=== PATIENT | female | born 1950 | race Caucasian/White ===

== ENCOUNTER 2017-07-06 09:18 | Observation (INO) | payer MEDICARE, OTHER ==
[~2017-07-06 09:18] MED LIST: Gentamicin 40 MG/ML 2 ML Vial ONE; Povidone-Iodine 10% Soln 118.25 ML Bottle ONE
[2017-07-06] MEDS ORDERED: Gabapentin 300 MG Cap PO ONE (09:45)
[2017-07-06] MEDS ORDERED: Acetaminophen 500 MG Tab PO ONE (09:45)
[2017-07-06] MEDS ORDERED: Scopolamine 1.5 MG Transdermal Patch TOP SCH (09:45)
[2017-07-06] MEDS ORDERED: Lactated Ringers 1,000 ML IV SCH ×2 (10:00→15:00)
[2017-07-06] MEDS ORDERED: Clindamycin Phosphate 900 MG in Sodium Chloride 0.9% 100 ML IV ONE (11:00)
[2017-07-06] MEDS: Tranexamic Acid 800 MG in Sodium Chloride 0.9% 50 ML IV SCH ×2 (11:15→16:36)
[2017-07-06] MEDS ORDERED: Ketamine 500 MG/5 ML MDV IV SCH (11:15)
[2017-07-06] MEDS ORDERED: Ropivacaine 49.25 ML, Ketorolac 30 MG, EPINEPHrine 0.5 MG, cloNIDine 80 MCG, Sodium Chl... INJECT ONE ×5 (11:15)
[2017-07-06] MEDS ORDERED: Midazolam 1 MG/ML 2 ML SDV ONE (12:24)
[2017-07-06] MEDS ORDERED: fentaNYL 100 MCG/2 ML SDV ONE (12:24)
[2017-07-06] MEDS ORDERED: Propofol 200 MG/20 ML SDV ONE ×2 (12:25→14:12)
[2017-07-06] MEDS ORDERED: Lactated Ringers 1,000 ML ONE (13:49)
[2017-07-06] MEDS ORDERED: diphenhydrAMINE 50 MG/ML SDV IVPUSH PRN (14:52)
[2017-07-06] MEDS ORDERED: Ondansetron 4 MG/2 ML SDV IVPUSH PRN (14:52)
[2017-07-06] MEDS ORDERED: Naloxone 0.4 MG/ML SDV IVPUSH PRN (14:52)
[2017-07-06] MEDS ORDERED: Magnesium Hydroxide 400 MG/5 ML Susp 30 ML Cup PO PRN (14:52)
[2017-07-06] MEDS ORDERED: Aluminum Hydroxide/Magnesium Hydroxide/Simethicone Susp 30 ML Cup PO PRN (14:52)
[2017-07-06] MEDS ORDERED: Sennosides 8.6 MG Tab PO PRN (14:52)
[2017-07-06] MEDS ORDERED: Bisacodyl 5 MG Tab PO PRN (14:52)
[2017-07-06] MEDS ORDERED: Albuterol 0.083% 2.5 MG/3 ML Neb Soln INH PRN (14:57)
[2017-07-06] MEDS ORDERED: Levalbuterol Tartrate HFA 15 GM Inhaler INH PRN (14:57)
[2017-07-06] MEDS: SCOPOLAMINE PATCH CHECK TOP SCH (16:31)
[2017-07-06] MEDS: Ketorolac 30 MG/ML SDV IVPUSH PRN (16:32)
[2017-07-06] MEDS: Acetaminophen/oxyCODONE 325-5 MG Tab PO PRN (18:12)
[2017-07-06] MEDS: Gabapentin 300 MG Cap PO SCH (18:23)
[2017-07-06] MEDS: traMADol 50 MG Tab PO PRN (20:29)
[2017-07-06] MEDS: rOPINIRole 0.5 MG Tab PO SCH (22:04)
[2017-07-06] MEDS: Amitriptyline 10 MG Tab PO SCH (22:04)
[2017-07-06] MEDS: Zolpidem 5 MG Tab PO PRN (22:04)
[2017-07-06] MEDS: Gabapentin 400 MG Cap PO SCH (22:04)
--- NOTE | 2017-07-06 23:09 | OR ---
DATE OF PROCEDURE: 07/06/2017 PREOPERATIVE DIAGNOSIS: Right knee primary osteoarthritis. POSTOPERATIVE DIAGNOSIS: Right knee primary osteoarthritis. PROCEDURE: Right total knee arthroplasty. ANESTHESIA: Spinal plus conscious sedation. FLUID: Lactated Ringer solution. ESTIMATED BLOOD LOSS: 50 mL. COMPLICATIONS: None. SPECIMEN: None. DISCHARGE DISPOSITION: Stable to PACU. INSTRUMENTATION: DePuy Attune knee, size 6 femur, size 6 tibia, size 6, 5 mm polyethylene and a 38 mm patella. INDICATIONS FOR THE PROCEDURE: The patient was seen preoperatively in the clinic. She failed nonoperative treatment. Preoperative imaging confirmed the above-mentioned diagnosis. Risks and benefits of the procedure were explained to the patient and informed consent was obtained. DESCRIPTION OF THE PROCEDURE: The patient was seen preoperatively by myself and the anesthesia staff in the preop holding area where the operative site was marked. She was brought to the operative suite by anesthesia staff where spinal sedation plus conscious sedation was administered. All extremities found to be well padded. A well-padded tourniquet was placed on the right lower extremity. Sterile Hobson catheter was inserted. The right lower extremity was prepped and draped in sterile manner. Time-out was called identifying the correct patient, correct procedure, the correct site, and antibiotics had begun within appropriate period of time. The right lower extremity was exsanguinated. Tourniquet was raised to 300 mmHg for 37 minutes and let down during cementing. A midline incision was made from the tibial tubercle to fit 3 fingerbreadths proximal to the proximal pole of the patella. A medial parapatellar arthrotomy was then made. The medial tibia was then exposed with Bovie electrocautery. The infrapatellar fat pad was then removed and a full synovectomy was performed using Bovie electrocautery. The patella was then everted and held with a tower clip. The knee was flexed. A saw cut was made freehand on the patella. The knee was then extended, this measured 38. I then drilled 3 holes for the trial and then placed the trial patella. I then flexed the knee again and reamed the distal femur and then put in an intramedullary guide at 9 mm distal cut, 5 degree valgus, pinned this in place, then made my distal femoral cut. I then removed the guide. I then used my posterior condylar guide which measured a 6 then placed the [address]. I then removed the guide and then placed the chamfer block and then cut the anterior-posterior chamfer cuts. I then removed the chamfer guide. I then concentrated on tibial preparation. We used an extramedullary tibial guide along the tibial tubercle down to the second metatarsal with a 3 mm distal resection. I did make 2 cuts and after removing the proximal tibial bone, I then used a laminar at home independent call center agent medially and laterally and then removed the remainder of the posterior menisci and then any posterior osteophytes with a curved osteotome. I then anteriorized the tibia again with a blunt Hohmann and then placed a 6 base plate,tamped it in place, then used my tower for reaming and then tamping, pulled it in place. We then inserted the femur and then drilled the lugs for the femur. I then inserted my 6, 5 mm polyethylene trial, this provided good stability, we then removed all of our components. We then copiously irrigated with saline and dried the bone and then cemented all of our components in place, held in extension with size 6, 5 mm polyethylene trial. I waited until the cement dried. We did control some bleeding with Bovie electrocautery. I then removed any extra cement, copiously irrigated with saline and then inserted my final size 6, 5 mm polyethylene tibial insert. This provided excellent stability throughout range of motion. I then closed my parapatellar arthrotomy with two #5 Ethibond sutures, and #1 running STRATAFIX and then irrigated again and then closed subcutaneous layer with #2 STRATAFIX, followed by skin martell, followed by Betadine-soaked Adaptic, followed by sterile dressing. The patient was then transferred to her hospital bed and taken to the PACU in stable condition. Baldo Harper DO /[id number]
[2017-07-07] MEDS: Ketorolac 30 MG/ML SDV IVPUSH PRN (02:23)
[2017-07-07] MEDS: traMADol 50 MG Tab PO PRN ×4 (02:24→23:25)
[2017-07-07] MEDS: Docusate Sodium 100 MG Cap PO PRN ×2 (02:24→21:39)
[2017-07-07] MEDS: Acetaminophen/oxyCODONE 325-5 MG Tab PO PRN ×5 (03:25→21:38)
[2017-07-07] MEDS: Morphine 2 MG/ML Syringe IVPUSH PRN ×2 (04:04→18:24)
[2017-07-07] MEDS: DULoxetine 30 MG Cap PO SCH (08:26)
[2017-07-07] MEDS: Hydrochlorothiazide/Triamterene 25-37.5 Tab PO SCH ×2 (08:27→09:44)
[2017-07-07] MEDS: Aspirin 325 MG Tab.EC PO SCH (08:27)
[2017-07-07] MEDS: Clopidogrel 75 MG Tab PO SCH (08:28)
[2017-07-07] MEDS: Gabapentin 300 MG Cap PO SCH ×2 (08:28→15:46)
[2017-07-07] MEDS: SCOPOLAMINE PATCH CHECK TOP SCH (08:28)
[2017-07-07] MEDS: Sodium Chloride 0.9% 10 ML Syringe FLUSH SCH (08:28)
[2017-07-07] MEDS: Allopurinol 300 MG Tab PO SCH (08:29)
[2017-07-07] MEDS: buPROPion 150 MG Tab.ER PO SCH (08:29)
[2017-07-07] MEDS: atorvaSTATin 10 MG Tab PO SCH (08:31)
--- NOTE | 2017-07-07 08:50 | CR ---
Knee 1V or 2V Rt HISTORY: POST RIGHT KNEE REPLACEMENT FINDINGS: Postoperative position and alignment left total knee arthroplasty with patella resurfacing appear sat isfactory. No complication can be seen. Anterior skin martell are noted. Air in the joint is consiste nt with the postoperative state. IMPRESSION: Satisfactory postoperative position and alignment left total knee arthroplasty with patella resurfaci ng. No complication identified.
[2017-07-07] MEDS ORDERED: Verapamil 120 MG Tab.ER PO SCH (09:00)
[2017-07-07] MEDS ORDERED: Verapamil 240 MG Tab.ER PO SCH (09:00)
[2017-07-07] MEDS ORDERED: Isosorbide Dinitrate 10 MG Tab PO SCH (09:00)
[2017-07-07] MEDS: Metoprolol Succinate 25 MG Tab.ER PO SCH (09:46)
--- NOTE | 2017-07-07 10:20 | PCM.PN ---
- General Info Date of Service: 07/07/17 Functional Status: Reports: Pain Controlled, Tolerating Diet - Review of Systems General: Denies: Fever Pulmonary: Denies: Shortness of Breath Neurological: Reports: Dizziness Systems Review Comment:: there were no acute events overnight. Patient was noted to have low blood pressure this morning with systolic pressures in the 90-100 range. She has mild lightheadedness but has been up and moving around and working with physical therapy. She does not complain of shortness of breath. Knee pain is rated as 4 out of 10. - Patient Data Vitals - Most Recent: Last Vital Signs Temp 35.5 C 07/07/17 07:24 Pulse 58 L 07/07/17 09:46 Resp 16 07/07/17 07:24 BP 92/56 L 07/07/17 09:46 Pulse Ox 94 L 07/07/17 07:24 Weight - Most Recent: 78.97 kg I&O - Last 24 Hours: Intake & Output 07/06/17 07/07/17 07/07/17 22:59 06:59 14:59 Intake Total 1777 1400 Output Total 430 400 Balance 1347 1000 Lab Results Last 24 Hours: Laboratory Results - last 24 hr 07/06/17 07/07/17 07/07/17 Range/Units 09:40 04:28 04:28 WBC 10.7 (4.5-11.0) K/uL RBC 2.94 L (3.30-5.50) M/uL Hgb 9.9 L D (12.0-15.0) g/dL Hct 31.1 L (36.0-48.0) % MCV 106 H (80-98) fL MCH 34 H (27-31) pg MCHC 32 (32-36) % Plt Count 332 (150-400) K/uL Neut % (Auto) 66 (36-66) % Lymph % (Auto) 20 L (24-44) % [place] % (Auto) 10 H (2-6) % Eos % (Auto) 4 (2-4) % Baso % (Auto) 0 (0-1) % Sodium 138 L (140-148) mmol/L Potassium 4.0 (3.6-5.2) mmol/L Chloride 102 (100-108) mmol/L Carbon Dioxide 30 (21-32) mmol/L Anion Gap 10.0 (5.0-14.0) mmol/L BUN 22 H (7-18) mg/dL Creatinine 1.2 H (0.6-1.0) mg/dL Est Cr Clr Drug Dosing 38.75 mL/min Estimated GFR (MDRD) 45 L (>60) Glucose 98 (74-106) mg/dL Calcium 8.1 L (8.5-10.1) mg/dL Total Bilirubin 0.5 D (0.2-1.0) mg/dL AST 20 (15-37) U/L ALT 26 (12-78) U/L Alkaline Phosphatase 64 (46-116) U/L Total Protein 5.7 L (6.4-8.2) g/dL Albumin 3.1 L (3.4-5.0) g/dL Globulin 2.6 (2.3-3.5) g/dL Albumin/Globulin Ratio 1.2 (1.2-2.2) Blood Type A POSITIVE Gel Antibody Screen Negative Med Orders - Current: Current Medications Al Hydroxide/Mg Hydroxide (Mag-Al Plus) 30 ml PO Q4H PRN PRN Reason: Constipation Albuterol (Proventil Neb Soln) 2.5 mg INH DAILY PRN PRN Reason: Wheezing Allopurinol (Zyloprim) 300 mg PO DAILY [facility] Last Admin: 07/07/17 08:29 Dose: 300 mg Amitriptyline HCl (Elavil) 20 mg PO BEDTIME [facility] Last Admin: 07/06/17 22:04 Dose: 20 mg Aspirin (Ecotrin) 325 mg PO DAILY [facility] Last Admin: 07/07/17 08:27 Dose: 325 mg Atorvastatin Calcium (Lipitor) 10 mg PO DAILY [facility] Last Admin: 07/07/17 08:31 Dose: 10 mg Bisacodyl (Dulcolax) 10 mg PO DAILY PRN PRN Reason: Constipation Bupropion HCl (Wellbutrin Xl) 150 mg PO DAILY [facility] Last Admin: 07/07/17 08:29 Dose: 150 mg Clopidogrel Bisulfate (Plavix) 75 mg PO DAILY [facility] Last Admin: 07/07/17 08:28 Dose: 75 mg Diphenhydramine HCl (Benadryl) 25 mg IVPUSH Q4H PRN PRN Reason: Itching Docusate Sodium (Colace) 100 mg PO BID PRN PRN Reason: Constipation Last Admin: 07/07/17 02:24 Dose: 100 mg Duloxetine HCl (Cymbalta) 60 mg PO DAILY [facility] Last Admin: 07/07/17 08:26 Dose: 60 mg Gabapentin (Neurontin) 600 mg PO BID@0900,1600 [facility] Last Admin: 07/07/17 08:28 Dose: 600 mg Gabapentin (Neurontin) 1,200 mg PO BEDTIME [facility] Last Admin: 07/06/17 22:04 Dose: 1,200 mg Isosorbide Dinitrate (Isordil) 10 mg PO DAILY [facility] Last Admin: 07/07/17 09:45 Dose: Not Given Levalbuterol HCl (Xopenex Hfa) 0 gm INH DAILY PRN PRN Reason: Wheezing Magnesium Hydroxide (Milk Of Magnesia) 30 ml PO BID PRN PRN Reason: Constipation Metoprolol Succinate (Toprol Xl) 25 mg PO DAILY [facility] Last Admin: 07/07/17 09:46 Dose: 25 mg Morphine Sulfate (Morphine) 2 mg IVPUSH Q2H PRN PRN Reason: Pain Last Admin: 07/07/17 04:04 Dose: 2 mg Naloxone HCl (Narcan) 0.1 mg IVPUSH ONETIME PRN PRN Reason: Oversedation Scopolamine Patch (Check) 1 each TOP DAILY [facility] Last Admin: 07/07/17 08:28 Dose: Not Given Ondansetron HCl (Zofran) 8 mg IVPUSH Q4H PRN PRN Reason: Nausea/Vomiting Oxycodone/Acetaminophen (Percocet 325-5 Mg) 2 tab PO Q4H PRN PRN Reason: Pain Last Admin: 07/07/17 07:31 Dose: 2 tab Ropinirole HCl (Requip) 0.5 mg PO BEDTIME [facility] Last Admin: 07/06/17 22:04 Dose: Not Given Scopolamine (Transderm-Scop) 1.5 mg TOP Q72H [facility] Stop: 07/09/17 05:45 Last Admin: 07/06/17 10:10 Dose: 1.5 mg Senna (Senna) 8.6 mg PO BID PRN PRN Reason: Constipation Sodium Chloride (Saline Flush) 10 ml FLUSH DAILY [facility] Last Admin: 07/07/17 08:28 Dose: 10 ml Tramadol HCl (Ultram) 100 mg PO Q6H PRN PRN Reason: Pain Last Admin: 07/07/17 09:37 Dose: 100 mg Triamterene/HCTZ (Maxzide 25-37.5 Mg) 1 each PO DAILY [facility] Last Admin: 07/07/17 09:44 Dose: Not Given Verapamil HCl (Calan Sr) 240 mg PO DAILY [facility] Last Admin: 07/07/17 09:45 Dose: Not Given Zolpidem Tartrate (Ambien) 5 mg PO BEDTIME PRN PRN Reason: Sleep Last Admin: 07/06/17 22:04 Dose: 5 mg Discontinued Medications Acetaminophen (Tylenol Extra Strength) 1,000 mg PO ONETIME ONE Stop: 07/06/17 09:46 Last Admin: 07/06/17 10:09 Dose: 1,000 mg Ropivacaine 49.25 ml/Ketorolac Tromethamine 30 mg/Epinephrine HCl 0.5 mg/ Clonidine HCl 80 mcg/ Sodium Chloride 48.45 ml 0 ml INJECT ONETIME ONE Stop: 07/06/17 11:16 Last Admin: 07/06/17 14:28 Dose: 80 ml Fentanyl (Sublimaze) Confirm Administered Dose 100 mcg .ROUTE .STK-MED ONE Stop: 07/06/17 12:25 Gabapentin (Neurontin) 300 mg PO ONETIME ONE Stop: 07/06/17 09:46 Last Admin: 07/06/17 10:09 Dose: 300 mg Gentamicin Sulfate (Gentamicin) Confirm Administered Dose 240 mg .ROUTE .STK- MED ONE Stop: 07/06/17 07:16 Last Admin: 07/06/17 13:55 Dose: 240 mg Clindamycin Phosphate 900 mg/ (Sodium Chloride) 106 mls @ 200 mls/hr IV ONETIME ONE Stop: 07/06/17 11:31 Last Admin: 07/06/17 11:00 Dose: 200 mls/hr Lactated Ringer's (Ringers, Lactated) 1,000 mls @ 100 mls/hr IV ASDIRECTED [facility] Last Admin: 07/06/17 10:48 Dose: 100 mls/hr Tranexamic Acid 800 mg/ Sodium (Chloride) 58 mls @ 232 mls/hr IV Q3H [facility] Stop: 07/06/17 14:29 Last Admin: 07/06/17 16:36 Dose: Not Given Lactated Ringer's (Ringers, Lactated) Confirm Administered Dose 1,000 mls @ as directed .ROUTE .STK-MED ONE Stop: 07/06/17 13:50 Lactated Ringer's (Ringers, Lactated) 1,000 mls @ 100 mls/hr IV ASDIRECTED [facility] Ketamine HCl (Ketalar) 27 mg IV ASDIRECTED [facility] Ketorolac Tromethamine (Toradol) 30 mg IVPUSH Q8H PRN PRN Reason: Pain Last Admin: 07/07/17 02:23 Dose: 30 mg Midazolam HCl (Versed 1 Mg/Ml) Confirm Administered Dose 2 mg .ROUTE .STK-MED ONE Stop: 07/06/17 12:25 Povidone Iodine (Betadine 10% Soln) Confirm Administered Dose 1 ml .ROUTE .STK- MED ONE Stop: 07/06/17 07:16 Last Admin: 07/06/17 13:55 Dose: 1 ml Propofol (Diprivan 20 Ml) Confirm Administered Dose 200 mg .ROUTE .STK-MED ONE Stop: 07/06/17 12:26 Propofol (Diprivan 20 Ml) Confirm Administered Dose 200 mg .ROUTE .STK-MED ONE Stop: 07/06/17 14:13 Verapamil HCl (Calan Sr) 240 mg PO DAILY [facility] - Exam Quality Assessment: No: Supplemental Oxygen General: Alert, Oriented, Cooperative, No Acute Distress Neck: Supple Lungs: Clear to Auscultation, Normal Respiratory Effort Cardiovascular: Regular Rate, Regular Rhythm GI/Abdominal Exam: No Distention Extremities: No Pedal Edema Skin: Warm, Dry Psy/Mental Status: Alert, Normal Affect - Problem List Review Problem List Initiated/Reviewed/Updated: Yes - Plan Plan:: ASSESSMENT AND PLAN - Status post right TKA - doing quite well postoperatively. Pain well-controlled. -Postoperative cares per orthopedic team Coronary artery disease - patient had 3 percutaneous stents placed approximately one year ago and has been on therapy with clopidogrel since that time. -Continue clopidogrel and metoprolol -Hold isosorbide as below Essential hypertension - blood pressure on the low side, mildly symptomatic. -Hold verapamil, isosorbide and tram train/hydrochlorothiazide Disposition - anticipate discharge to home tomorrow Prasanna Crevantes M.D.
[2017-07-07] MEDS: Amitriptyline 10 MG Tab PO SCH (21:39)
[2017-07-07] MEDS: Zolpidem 5 MG Tab PO PRN (21:39)
[2017-07-07] MEDS: Gabapentin 400 MG Cap PO SCH (21:40)
[2017-07-07] MEDS: rOPINIRole 0.5 MG Tab PO SCH (21:44)
[2017-07-08] MEDS: Acetaminophen/oxyCODONE 325-5 MG Tab PO PRN ×3 (02:32→11:25)
[2017-07-08] MEDS: traMADol 50 MG Tab PO PRN ×2 (05:44→13:00)
[2017-07-08] MEDS ORDERED: Sodium Chloride 0.9% 500 ML IV ONE (08:45)
--- NOTE | 2017-07-08 09:03 | PCM.DCSUM1 ---
Discharge Summary - Discharge Data Discharge Date: 07/08/17 Discharge Disposition: Home, Self-Care 01 Condition: Good - Discharge Diagnosis/Problem(s) (1) Primary osteoarthritis of right knee SNOMED Code(s): 754095069735741, [id number] ICD Code: M17.11 - UNILATERAL PRIMARY OSTEOARTHRITIS, RIGHT KNEE Status: Chronic Current Visit: No - Patient Summary/Data Operative Procedure(s) Performed: right tka Consults: Consultations 07/06/17 14:52 OT Evaluation and Treatment [CONS] Routine Please Evaluate and Treat. OT Reason for Consult: Strengthening This query below is only for informational purposes and is not editable. PT Evaluation and Treatment [CONS] Routine Please Evaluate and Treat. PT Reason for Consult: Strengthening This query below is only for informational purposes and is not editable. Respiratory Care Assess and Treatment [CONS] Routine Comment: Physician Instructions: Post-op Pneumonia Prevention - Patient Instructions Diet: Usual Diet as Tolerated Activity: As Tolerated, Full Weight Bearing, No Strenuous Activities Driving: Do Not Drive Showering/Bathing: May Shower Wound/Incision Care: Keep Operative Site/Wound Site Clean and Dry, Change Dressing Daily Notify Provider of: Fever, Increased Pain, Swelling and Redness, Drainage, Nausea and/or Vomiting - Discharge Plan Prescriptions/Med Rec: Acetaminophen/oxyCODONE [Percocet 325-5 MG] 1 tab PO Q6HR #90 tablet Home Medications: Home Meds Acetaminophen with Codeine [Acetaminophen-Cod #3] 1 tab PO Q4H PRN 06/15/17 [ History] Alendronate Sodium [Alendronate] 70 mg PO WEEKLY 06/15/17 [History] Allopurinol [Zyloprim] 300 mg PO DAILY 06/15/17 [History] Amitriptyline [Elavil] 20 mg PO BEDTIME 06/15/17 [History] Clopidogrel Bisulfate [Clopidogrel] 75 mg PO DAILY 06/15/17 [History] DULoxetine HCl [Duloxetine HCl] 60 mg PO DAILY 06/15/17 [History] Isosorbide Dinitrate 10 mg PO DAILY 06/15/17 [History] Metoprolol Succinate [Toprol XL] 25 mg PO DAILY 06/15/17 [History] Triamterene/Hydrochlorothiazid [Triamterene-HCTZ 37.5-25 MG] 25 - 37.5 mg PO DAILY 06/15/17 [History] Verapamil [Calan SR] 240 mg PO DAILY 06/15/17 [History] Zolpidem Tartrate 10 mg PO DAILY 06/15/17 [History] atorvaSTATin [Lipitor] 10 mg PO DAILY 06/15/17 [History] buPROPion [buPROPion XL] 150 mg PO DAILY 06/15/17 [History] rOPINIRole [Requip] 0.5 mg PO DAILY 06/15/17 [History] Gabapentin [Neurontin] 1,200 mg PO BEDTIME 06/16/17 [History] Gabapentin [Neurontin] 600 mg PO BID 06/16/17 [History] Acetaminophen/oxyCODONE [Percocet 325-5 MG] 1 tab PO Q6HR #90 tablet 07/06/17 [ Rx] Albuterol [Proventil] 1 ampule INH DAILY PRN 07/06/17 [History] Cholecalciferol (Vitamin D3) [Vitamin D] 5,000 unit PO DAILY 07/06/17 [History] Levalbuterol Tartrate [Xopenex HFA] 1 puff INH DAILY PRN 07/06/17 [History] Magnesium Oxide 400 mg PO DAILY 07/06/17 [History] Referrals: Dasha Jimenez PT [Physical Therapist] - 07/12/17 9:00 am Baldo Harper DO [Physician] - 07/29/17 10:15 am - General Info Functional Status: Reports: Pain Controlled - Review of Systems General: Reports: No Symptoms HEENT: Reports: No Symptoms Pulmonary: Reports: No Symptoms Cardiovascular: Reports: No Symptoms Gastrointestinal: Reports: No Symptoms Genitourinary: Reports: No Symptoms Musculoskeletal: Reports: Joint Pain Skin: Reports: No Symptoms Neurological: Reports: No Symptoms Psychiatric: Reports: No Symptoms - Patient Data Vitals - Most Recent: Last Vital Signs Temp 99.2 F 07/08/17 07:35 Pulse 75 07/08/17 07:35 Resp 18 07/08/17 07:35 BP 117/31 L 07/08/17 07:35 Pulse Ox 97 07/08/17 07:35 Weight - Most Recent: 174 lb 1.585 oz I&O - Last 24 hours: Intake & Output 07/07/17 07/08/17 07/08/17 22:59 06:59 14:59 Intake Total 2019 700 Output Total 450 900 Balance 1570 -200 Lab Results - Last 24 hrs: Laboratory Results - last 24 hr 07/08/17 07/08/17 Range/Units 05:07 05:07 WBC 9.0 (4.5-11.0) K/uL RBC 2.73 L (3.30-5.50) M/uL Hgb 9.2 L (12.0-15.0) g/dL Hct 28.6 L (36.0-48.0) % MCV 105 H (80-98) fL MCH 34 H (27-31) pg MCHC 32 (32-36) % Plt Count 282 (150-400) K/uL Neut % (Auto) 70 H (36-66) % Lymph % (Auto) 10 L (24-44) % [place] % (Auto) 14 H (2-6) % Eos % (Auto) 6 H (2-4) % Baso % (Auto) 0 (0-1) % Sodium 139 L (140-148) mmol/L Potassium 4.8 (3.6-5.2) mmol/L Chloride 104 (100-108) mmol/L Carbon Dioxide 29 (21-32) mmol/L Anion Gap 10.8 (5.0-14.0) mmol/L BUN 24 H (7-18) mg/dL Creatinine 1.3 H (0.6-1.0) mg/dL Est Cr Clr Drug Dosing 36.03 mL/min Estimated GFR (MDRD) 41 L (>60) Glucose 108 H (74-106) mg/dL Calcium 8.1 L (8.5-10.1) mg/dL Total Bilirubin 0.4 (0.2-1.0) mg/dL AST 17 (15-37) U/L ALT 21 (12-78) U/L Alkaline Phosphatase 60 (46-116) U/L Total Protein 5.7 L (6.4-8.2) g/dL Albumin 2.7 L (3.4-5.0) g/dL Globulin 3.0 (2.3-3.5) g/dL Albumin/Globulin Ratio 0.9 L (1.2-2.2) Med Orders - Current: Current Medications Al Hydroxide/Mg Hydroxide (Mag-Al Plus) 30 ml PO Q4H PRN PRN Reason: Constipation Albuterol (Proventil Neb Soln) 2.5 mg INH DAILY PRN PRN Reason: Wheezing Allopurinol (Zyloprim) 300 mg PO DAILY [facility] Last Admin: 07/07/17 08:29 Dose: 300 mg Amitriptyline HCl (Elavil) 20 mg PO BEDTIME [facility] Last Admin: 07/07/17 21:39 Dose: 20 mg Aspirin (Ecotrin) 325 mg PO DAILY [facility] Last Admin: 07/07/17 08:27 Dose: 325 mg Atorvastatin Calcium (Lipitor) 10 mg PO DAILY [facility] Last Admin: 07/07/17 08:31 Dose: 10 mg Bisacodyl (Dulcolax) 10 mg PO DAILY PRN PRN Reason: Constipation Bupropion HCl (Wellbutrin Xl) 150 mg PO DAILY [facility] Last Admin: 07/07/17 08:29 Dose: 150 mg Clopidogrel Bisulfate (Plavix) 75 mg PO DAILY [facility] Last Admin: 07/07/17 08:28 Dose: 75 mg Diphenhydramine HCl (Benadryl) 25 mg IVPUSH Q4H PRN PRN Reason: Itching Docusate Sodium (Colace) 100 mg PO BID PRN PRN Reason: Constipation Last Admin: 07/07/17 21:39 Dose: 100 mg Duloxetine HCl (Cymbalta) 60 mg PO DAILY [facility] Last Admin: 07/07/17 08:26 Dose: 60 mg Gabapentin (Neurontin) 600 mg PO BID@0900,1600 [facility] Last Admin: 07/07/17 15:46 Dose: 600 mg Gabapentin (Neurontin) 1,200 mg PO BEDTIME [facility] Last Admin: 07/07/17 21:40 Dose: 1,200 mg Sodium Chloride (Normal Saline) 500 mls @ 500 mls/hr IV ASDIRECTED ONE Stop: 07/08/17 09:44 Isosorbide Dinitrate (Isordil) 10 mg PO DAILY [facility] Last Admin: 07/07/17 09:45 Dose: Not Given Levalbuterol HCl (Xopenex Hfa) 0 gm INH DAILY PRN PRN Reason: Wheezing Magnesium Hydroxide (Milk Of Magnesia) 30 ml PO BID PRN PRN Reason: Constipation Metoprolol Succinate (Toprol Xl) 25 mg PO DAILY [facility] Last Admin: 07/07/17 09:46 Dose: 25 mg Morphine Sulfate (Morphine) 2 mg IVPUSH Q2H PRN PRN Reason: Pain Last Admin: 07/07/17 18:24 Dose: 2 mg Naloxone HCl (Narcan) 0.1 mg IVPUSH ONETIME PRN PRN Reason: Oversedation Scopolamine Patch (Check) 1 each TOP DAILY [facility] Last Admin: 07/07/17 08:28 Dose: Not Given Ondansetron HCl (Zofran) 8 mg IVPUSH Q4H PRN PRN Reason: Nausea/Vomiting Oxycodone/Acetaminophen (Percocet 325-5 Mg) 2 tab PO Q4H PRN PRN Reason: Pain Last Admin: 07/08/17 07:22 Dose: 2 tab Ropinirole HCl (Requip) 0.5 mg PO BEDTIME [facility] Last Admin: 07/07/17 21:44 Dose: 0.25 mg Scopolamine (Transderm-Scop) 1.5 mg TOP Q72H [facility] Stop: 07/09/17 05:45 Last Admin: 07/06/17 10:10 Dose: 1.5 mg Senna (Senna) 8.6 mg PO BID PRN PRN Reason: Constipation Sodium Chloride (Saline Flush) 10 ml FLUSH DAILY [facility] Last Admin: 07/07/17 08:28 Dose: 10 ml Tramadol HCl (Ultram) 100 mg PO Q6H PRN PRN Reason: Pain Last Admin: 07/08/17 05:44 Dose: 100 mg Triamterene/HCTZ (Maxzide 25-37.5 Mg) 1 each PO DAILY [facility] Last Admin: 07/07/17 09:44 Dose: Not Given Verapamil HCl (Calan Sr) 240 mg PO DAILY [facility] Last Admin: 07/07/17 09:45 Dose: Not Given Zolpidem Tartrate (Ambien) 5 mg PO BEDTIME PRN PRN Reason: Sleep Last Admin: 07/07/17 21:39 Dose: 5 mg Discontinued Medications Acetaminophen (Tylenol Extra Strength) 1,000 mg PO ONETIME ONE Stop: 07/06/17 09:46 Last Admin: 07/06/17 10:09 Dose: 1,000 mg Ropivacaine 49.25 ml/Ketorolac Tromethamine 30 mg/Epinephrine HCl 0.5 mg/ Clonidine HCl 80 mcg/ Sodium Chloride 48.45 ml 0 ml INJECT ONETIME ONE Stop: 07/06/17 11:16 Last Admin: 07/06/17 14:28 Dose: 80 ml Fentanyl (Sublimaze) Confirm Administered Dose 100 mcg .ROUTE .STK-MED ONE Stop: 07/06/17 12:25 Gabapentin (Neurontin) 300 mg PO ONETIME ONE Stop: 07/06/17 09:46 Last Admin: 07/06/17 10:09 Dose: 300 mg Gentamicin Sulfate (Gentamicin) Confirm Administered Dose 240 mg .ROUTE .STK- MED ONE Stop: 07/06/17 07:16 Last Admin: 07/06/17 13:55 Dose: 240 mg Clindamycin Phosphate 900 mg/ (Sodium Chloride) 106 mls @ 200 mls/hr IV ONETIME ONE Stop: 07/06/17 11:31 Last Admin: 07/06/17 11:00 Dose: 200 mls/hr Lactated Ringer's (Ringers, Lactated) 1,000 mls @ 100 mls/hr IV ASDIRECTED [facility] Last Admin: 07/06/17 10:48 Dose: 100 mls/hr Tranexamic Acid 800 mg/ Sodium (Chloride) 58 mls @ 232 mls/hr IV Q3H [facility] Stop: 07/06/17 14:29 Last Admin: 07/06/17 16:36 Dose: Not Given Lactated Ringer's (Ringers, Lactated) Confirm Administered Dose 1,000 mls @ as directed .ROUTE .STK-MED ONE Stop: 07/06/17 13:50 Lactated Ringer's (Ringers, Lactated) 1,000 mls @ 100 mls/hr IV ASDIRECTED [facility] Ketamine HCl (Ketalar) 27 mg IV ASDIRECTED [facility] Ketorolac Tromethamine (Toradol) 30 mg IVPUSH Q8H PRN PRN Reason: Pain Last Admin: 07/07/17 02:23 Dose: 30 mg Midazolam HCl (Versed 1 Mg/Ml) Confirm Administered Dose 2 mg .ROUTE .STK-MED ONE Stop: 07/06/17 12:25 Povidone Iodine (Betadine 10% Soln) Confirm Administered Dose 1 ml .ROUTE .STK- MED ONE Stop: 07/06/17 07:16 Last Admin: 07/06/17 13:55 Dose: 1 ml Propofol (Diprivan 20 Ml) Confirm Administered Dose 200 mg .ROUTE .STK-MED ONE Stop: 07/06/17 12:26 Propofol (Diprivan 20 Ml) Confirm Administered Dose 200 mg .ROUTE .STK-MED ONE Stop: 07/06/17 14:13 Verapamil HCl (Calan Sr) 240 mg PO DAILY [facility] - Exam General: Reports: Alert, Oriented HEENT: Reports: Pupils Equal, Pupils Reactive, EOMI, Mucous Membr. Moist/[place] Neck: Reports: Supple, Trachea Midline Lungs: Reports: Normal Respiratory Effort Extremities: Limited Range of Motion, Increased Warmth Skin: Reports: Warm, Dry Wound/Incisions: Reports: Healing Well, Dressing Dry and Intact, No Drainage Neurological: Reports: No New Focal Deficit Psy/Mental Status: Reports: Alert, Normal Affect, Normal Mood (walking well) Discharge Operative/Procedures - Procedures Performed Operations: right tka
[2017-07-08] MEDS: Aspirin 325 MG Tab.EC PO SCH (09:09)
[2017-07-08] MEDS: DULoxetine 30 MG Cap PO SCH (09:09)
[2017-07-08] MEDS: Gabapentin 300 MG Cap PO SCH (09:10)
[2017-07-08] MEDS: SCOPOLAMINE PATCH CHECK TOP SCH (09:11)
[2017-07-08] MEDS: Clopidogrel 75 MG Tab PO SCH (09:12)
[2017-07-08] MEDS: buPROPion 150 MG Tab.ER PO SCH (09:13)
[2017-07-08] MEDS: Sodium Chloride 0.9% 10 ML Syringe FLUSH SCH (09:13)
[2017-07-08] MEDS: Allopurinol 300 MG Tab PO SCH (09:13)
[2017-07-08] MEDS: Metoprolol Succinate 25 MG Tab.ER PO SCH (09:14)
[2017-07-08] MEDS: atorvaSTATin 10 MG Tab PO SCH (09:14)
--- NOTE | 2017-07-08 14:32 | PCM.PN ---
- General Info Date of Service: 07/08/17 Functional Status: Reports: Pain Controlled, Tolerating Diet, Ambulating - Review of Systems Systems Review Comment:: No acute events overnight. Blood pressures remained on the low side but are trending up. She did receive a fluid bolus this morning. - Patient Data Vitals - Most Recent: Last Vital Signs Temp 36.8 C 07/08/17 11:22 Pulse 66 07/08/17 11:22 Resp 16 07/08/17 11:22 BP 140/55 L 07/08/17 11:22 Pulse Ox 95 07/08/17 11:22 Weight - Most Recent: 78.97 kg I&O - Last 24 Hours: Intake & Output 07/07/17 07/08/17 07/08/17 22:59 06:59 14:59 Intake Total 2020 700 450 Output Total 450 900 Balance 1570 -200 450 Lab Results Last 24 Hours: Laboratory Results - last 24 hr 07/08/17 07/08/17 Range/Units 05:07 05:07 WBC 9.0 (4.5-11.0) K/uL RBC 2.73 L (3.30-5.50) M/uL Hgb 9.2 L (12.0-15.0) g/dL Hct 28.6 L (36.0-48.0) % MCV 105 H (80-98) fL MCH 34 H (27-31) pg MCHC 32 (32-36) % Plt Count 282 (150-400) K/uL Neut % (Auto) 70 H (36-66) % Lymph % (Auto) 10 L (24-44) % Carroll % (Auto) 14 H (2-6) % Eos % (Auto) 6 H (2-4) % Baso % (Auto) 0 (0-1) % Sodium 139 L (140-148) mmol/L Potassium 4.8 (3.6-5.2) mmol/L Chloride 104 (100-108) mmol/L Carbon Dioxide 29 (21-32) mmol/L Anion Gap 10.8 (5.0-14.0) mmol/L BUN 24 H (7-18) mg/dL Creatinine 1.3 H (0.6-1.0) mg/dL Est Cr Clr Drug Dosing 36.03 mL/min Estimated GFR (MDRD) 41 L (>60) Glucose 108 H (74-106) mg/dL Calcium 8.1 L (8.5-10.1) mg/dL Total Bilirubin 0.4 (0.2-1.0) mg/dL AST 17 (15-37) U/L ALT 21 (12-78) U/L Alkaline Phosphatase 60 (46-116) U/L Total Protein 5.7 L (6.4-8.2) g/dL Albumin 2.7 L (3.4-5.0) g/dL Globulin 3.0 (2.3-3.5) g/dL Albumin/Globulin Ratio 0.9 L (1.2-2.2) Med Orders - Current: Current Medications Discontinued Medications Acetaminophen (Tylenol Extra Strength) 1,000 mg PO ONETIME ONE Stop: 07/06/17 09:46 Last Admin: 07/06/17 10:09 Dose: 1,000 mg Al Hydroxide/Mg Hydroxide (Mag-Al Plus) 30 ml PO Q4H PRN PRN Reason: Constipation Albuterol (Proventil Neb Soln) 2.5 mg INH DAILY PRN PRN Reason: Wheezing Allopurinol (Zyloprim) 300 mg PO DAILY [facility] Last Admin: 07/08/17 09:13 Dose: 300 mg Amitriptyline HCl (Elavil) 20 mg PO BEDTIME [facility] Last Admin: 07/07/17 21:39 Dose: 20 mg Aspirin (Ecotrin) 325 mg PO DAILY [facility] Last Admin: 07/08/17 09:09 Dose: 325 mg Atorvastatin Calcium (Lipitor) 10 mg PO DAILY [facility] Last Admin: 07/08/17 09:14 Dose: 10 mg Bisacodyl (Dulcolax) 10 mg PO DAILY PRN PRN Reason: Constipation Bupropion HCl (Wellbutrin Xl) 150 mg PO DAILY [facility] Last Admin: 07/08/17 09:13 Dose: 150 mg Clopidogrel Bisulfate (Plavix) 75 mg PO DAILY [facility] Last Admin: 07/08/17 09:12 Dose: 75 mg Ropivacaine 49.25 ml/Ketorolac Tromethamine 30 mg/Epinephrine HCl 0.5 mg/ Clonidine HCl 80 mcg/ Sodium Chloride 48.45 ml 0 ml INJECT ONETIME ONE Stop: 07/06/17 11:16 Last Admin: 07/06/17 14:28 Dose: 80 ml Diphenhydramine HCl (Benadryl) 25 mg IVPUSH Q4H PRN PRN Reason: Itching Docusate Sodium (Colace) 100 mg PO BID PRN PRN Reason: Constipation Last Admin: 07/07/17 21:39 Dose: 100 mg Duloxetine HCl (Cymbalta) 60 mg PO DAILY [facility] Last Admin: 07/08/17 09:09 Dose: 60 mg Fentanyl (Sublimaze) Confirm Administered Dose 100 mcg .ROUTE .STK-MED ONE Stop: 07/06/17 12:25 Gabapentin (Neurontin) 300 mg PO ONETIME ONE Stop: 07/06/17 09:46 Last Admin: 07/06/17 10:09 Dose: 300 mg Gabapentin (Neurontin) 600 mg PO BID@0900,1600 [facility] Last Admin: 07/08/17 09:10 Dose: 600 mg Gabapentin (Neurontin) 1,200 mg PO BEDTIME [facility] Last Admin: 07/07/17 21:40 Dose: 1,200 mg Gentamicin Sulfate (Gentamicin) Confirm Administered Dose 240 mg .ROUTE .STK- MED ONE Stop: 07/06/17 07:16 Last Admin: 07/06/17 13:55 Dose: 240 mg Clindamycin Phosphate 900 mg/ (Sodium Chloride) 106 mls @ 200 mls/hr IV ONETIME ONE Stop: 07/06/17 11:31 Last Admin: 07/06/17 11:00 Dose: 200 mls/hr Lactated Ringer's (Ringers, Lactated) 1,000 mls @ 100 mls/hr IV ASDIRECTED [facility] Last Admin: 07/06/17 10:48 Dose: 100 mls/hr Tranexamic Acid 800 mg/ Sodium (Chloride) 58 mls @ 232 mls/hr IV Q3H [facility] Stop: 07/06/17 14:29 Last Admin: 07/06/17 16:36 Dose: Not Given Lactated Ringer's (Ringers, Lactated) Confirm Administered Dose 1,000 mls @ as directed .ROUTE .STK-MED ONE Stop: 07/06/17 13:50 Lactated Ringer's (Ringers, Lactated) 1,000 mls @ 100 mls/hr IV ASDIRECTED [facility] Sodium Chloride (Normal Saline) 500 mls @ 500 mls/hr IV ASDIRECTED ONE Stop: 07/08/17 09:44 Last Admin: 07/08/17 09:08 Dose: 500 mls/hr Isosorbide Dinitrate (Isordil) 10 mg PO DAILY [facility] Last Admin: 07/07/17 09:45 Dose: Not Given Ketamine HCl (Ketalar) 27 mg IV ASDIRECTED [facility] Ketorolac Tromethamine (Toradol) 30 mg IVPUSH Q8H PRN PRN Reason: Pain Last Admin: 07/07/17 02:23 Dose: 30 mg Levalbuterol HCl (Xopenex Hfa) 0 gm INH DAILY PRN PRN Reason: Wheezing Magnesium Hydroxide (Milk Of Magnesia) 30 ml PO BID PRN PRN Reason: Constipation Metoprolol Succinate (Toprol Xl) 25 mg PO DAILY [facility] Last Admin: 07/08/17 09:14 Dose: 25 mg Midazolam HCl (Versed 1 Mg/Ml) Confirm Administered Dose 2 mg .ROUTE .STK-MED ONE Stop: 07/06/17 12:25 Morphine Sulfate (Morphine) 2 mg IVPUSH Q2H PRN PRN Reason: Pain Last Admin: 07/07/17 18:24 Dose: 2 mg Naloxone HCl (Narcan) 0.1 mg IVPUSH ONETIME PRN PRN Reason: Oversedation Scopolamine Patch (Check) 1 each TOP DAILY [facility] Last Admin: 07/08/17 09:11 Dose: Not Given Ondansetron HCl (Zofran) 8 mg IVPUSH Q4H PRN PRN Reason: Nausea/Vomiting Oxycodone/Acetaminophen (Percocet 325-5 Mg) 2 tab PO Q4H PRN PRN Reason: Pain Last Admin: 07/08/17 11:25 Dose: 2 tab Povidone Iodine (Betadine 10% Soln) Confirm Administered Dose 1 ml .ROUTE .STK- MED ONE Stop: 07/06/17 07:16 Last Admin: 07/06/17 13:55 Dose: 1 ml Propofol (Diprivan 20 Ml) Confirm Administered Dose 200 mg .ROUTE .STK-MED ONE Stop: 07/06/17 12:26 Propofol (Diprivan 20 Ml) Confirm Administered Dose 200 mg .ROUTE .STK-MED ONE Stop: 07/06/17 14:13 Ropinirole HCl (Requip) 0.5 mg PO BEDTIME [facility] Last Admin: 07/07/17 21:44 Dose: 0.25 mg Scopolamine (Transderm-Scop) 1.5 mg TOP Q72H [facility] Stop: 07/09/17 05:45 Last Admin: 07/06/17 10:10 Dose: 1.5 mg Senna (Senna) 8.6 mg PO BID PRN PRN Reason: Constipation Sodium Chloride (Saline Flush) 10 ml FLUSH DAILY [facility] Last Admin: 07/08/17 09:13 Dose: 10 ml Tramadol HCl (Ultram) 100 mg PO Q6H PRN PRN Reason: Pain Last Admin: 07/08/17 13:00 Dose: 100 mg Triamterene/HCTZ (Maxzide 25-37.5 Mg) 1 each PO DAILY [facility] Last Admin: 07/07/17 09:44 Dose: Not Given Verapamil HCl (Calan Sr) 240 mg PO DAILY [facility] Verapamil HCl (Calan Sr) 240 mg PO DAILY [facility] Last Admin: 07/07/17 09:45 Dose: Not Given Zolpidem Tartrate (Ambien) 5 mg PO BEDTIME PRN PRN Reason: Sleep Last Admin: 07/07/17 21:39 Dose: 5 mg - Exam Quality Assessment: No: Supplemental Oxygen General: Alert, Oriented, Cooperative, No Acute Distress Lungs: Normal Respiratory Effort Cardiovascular: Regular Rate, Regular Rhythm Extremities: No Pedal Edema - Problem List Review Problem List Initiated/Reviewed/Updated: Yes - Plan Plan:: ASSESSMENT AND PLAN - Status post right TKA - doing quite well postoperatively. Pain well-controlled. -Postoperative cares per orthopedic team Coronary artery disease - no active symptoms, clinically doing well. -Continue clopidogrel and metoprolol -Hold isosorbide as below Essential hypertension - blood pressure on the low side but improving after fluid bolus. -Hold verapamil, isosorbide and tram train/hydrochlorothiazide today, restart if systolic blood pressures greater than 145 tomorrow Disposition - anticipate discharge to home today Prasanna Cervantes M.D.
== END 2017-07-08 13:00 | disposition home or self-care (01) ==
LOC: JP.SDS 09:18 → JP.MS 14:52 → JP.SDS 07-07 11:00
PROVIDERS: ADMIT Orthopaedic Surgery; ATTEND Orthopaedic Surgery
DX: M17.11 Unilateral primary osteoarthritis, right knee (principal); I25.10 Atherosclerotic heart disease of native coronary artery without angina pectoris; G47.33 Obstructive sleep apnea (adult) (pediatric); I12.9 Hypertensive chronic kidney disease with stage 1 through stage 4 chronic kidney disease, or unspecified chronic kidney disease; N18.3 Chronic kidney disease, stage 3 (moderate); G60.9 Hereditary and idiopathic neuropathy, unspecified; J45.909 Unspecified asthma, uncomplicated; Z95.5 Presence of coronary angioplasty implant and graft; Z79.899 Other long term (current) drug therapy; Z79.02 Long term (current) use of antithrombotics/antiplatelets; Z99.89 Dependence on other enabling machines and devices; Z88.0 Allergy status to penicillin; Z85.3 Personal history of malignant neoplasm of breast
CPT/HCPCS: 36415; 73560-26-RT; 73560-RT; 80053; 85025; 86850; 86900; 86901; 94762; 96360; 97110-GP; 97116-GP; 97161-GP; 97165-GO; 97530-GP; A9270-GY; C1713; G0378; J0171; J0735; J1580; J1885; J2250; J2270; J2704; J2795; J3010; J7030; J7040; J7050; J7120; S0077